=== PATIENT | male | born 1990 | race Caucasian/White ===

== ENCOUNTER 2018-07-05 13:39 | Inpatient (IN) | payer SELFPAY ==
[~2018-07-05] VITALS: Ht 175.3 cm; Wt 97.1 kg
[2018-07-05] MEDS ORDERED: MAGNESIUM HYDROXIDE 2,400 MG/30 ML ORAL.SUSP. PO PRN (15:15)
[2018-07-05] MEDS ORDERED: ONDANSETRON PF 4 MG/2 ML VIAL. IV PRN ×3 (15:15→21:30)
[2018-07-05] MEDS ORDERED: MORPHINE SULFATE 2 MG/ML VIAL. IV PRN ×3 (15:15→18:45)
[2018-07-05] MEDS ORDERED: oxyCODONE IR 5 MG TABLET PO PRN (15:15)
[2018-07-05] MEDS ORDERED: PROCHLORPERAZINE 25 MG SUPP.RECT. PR PRN (15:15)
[2018-07-05] MEDS ORDERED: CALCIUM CARBONATE 500 MG TAB.CHEW PO PRN (15:15)
[2018-07-05] MEDS ORDERED: MAG HYDROX/ALUMINUM HYD/SIMETH 30 ML ORAL.SUSP PO PRN (15:15)
[2018-07-05] MEDS ORDERED: PROCHLORPERAZINE 10 MG/2 ML VIAL. IV PRN ×2 (15:15→18:45)
[2018-07-05] MEDS ORDERED: ACETAMINOPHEN 325 MG TABLET. PO PRN (15:15)
[2018-07-05] MEDS ORDERED: BISACODYL 10 MG SUPP.RECT. PR PRN (15:15)
[2018-07-05] MEDS ORDERED: ZOLPIDEM 5 MG TABLET. PO PRN (15:15)
[2018-07-05] MEDS ORDERED: chlordiazePOXIDE HCL 25 MG CAPSULE PO PRN (15:45)
--- NOTE | 2018-07-05 15:48 | PDOC1 ---
History and Physical Date of Admission Date of Admission DATE: 07/05/18 TIME: 15:45 Identification/Chief Complaint Chief Complaint Right sided abd pain Source Source: Caregiver, Chart review, Patient History of Present Illness History of Present Illness 28-year-old obese male only takes inhalers when necessary, comes in because of acute onset right lower quadrant abdominal pain, some nausea and emesis and one episode diarrhea. No fevers at home. Went to [facility]. Imaging shows acute appendicitis hence transferred here. Surgery is aware, nothing by mouth. Has yet to see the patient NOn smoker but daily drinker, Admits he drinks more than what he is supposed to. No withdrawal signs yet Past Medical History Cardiovascular: No pertinent hx Pulmonary: Asthma, Bronchitis GI: No pertinent hx Heme/Onc: No pertinent hx Hepatobiliary: No pertinent hx Psych: No pertinent hx Rheumatologic: No pertinent hx Infectious disease: No pertinent hx ENT: No pertinent hx Endocrine: No pertinent hx Dermatology: No pertinent hx Past Surgical History Past Surgical History finger sx in high school-minor surgery Family History Family History: No Significant Social History Smoke: No ALCOHOL: heavy Drugs: None Current Medications Current Medications Current Medications Sodium Chloride 1,000 ml @ 100 mls/hr Q10H IV ; Start 07/05/18 at 15:10 Ondansetron HCl (Zofran) 4 mg PRN Q6HRS PRN IV NAUSEA/VOMITING; Start at 15:15 Prochlorperazine Edisylate (Compazine) 10 mg PRN Q6HRS PRN IV NAUSEA/VOMITING; Start 07/05/18 at 15:15 Prochlorperazine (Compazine) 25 mg PRN Q12HR PRN ID NAUSEA/VOMITING; Start at 15:15 Al Hydroxide/Mg Hydroxide (Mylanta Plus Xs) 30 ml PRN Q3HRS PRN PO HEARTBURN / GAS; Start 07/05/18 at 15:15 Calcium Carbonate/ Glycine (Tums) 500 mg PRN Q3HRS PRN PO UPSET STOMACH; Start 07/05/18 at 15:15 Zolpidem Tartrate (Ambien) 5 mg PRN QHS PRN PO INSOMNIA, MAY REPEAT IN 1HR; Start 07/05/18 at 15:15 Oxycodone HCl (Roxicodone) 5 mg PRN Q3HRS PRN PO BREAKTHROUGH PAIN; Start at 15:15 Morphine Sulfate (Morphine Sulfate) 2 mg PRN Q2HR PRN IV PAIN; Start 07/05/18 at 15:15 Acetaminophen (Tylenol) 650 mg PRN Q6HRS PRN PO Headaches, Temp > 101.5F; Start 07/05/18 at 15:15 Magnesium Hydroxide (Milk Of Magnesia) 2,400 mg PRN Q12HR PRN PO CONSTIPATION; Start 07/05/18 at 15:15 Bisacodyl (Dulcolax Supp) 10 mg PRN DAILY PRN ID CONSTIPATION; Start 07/05/18 at 15:15 Allergies Allergies: Coded Allergies: No Known Drug Allergies (Unverified , 07/05/18) ROS Review of System As per history of present illness, the rest of ROS 14 point negative Physical Exam General: Alert, Oriented X3, Cooperative, No acute distress HEENT: Atraumatic, PERRLA, EOMI Lungs: Clear to auscultation, Normal air movement Heart: S1S2, RRR, no thrills, no rubs, no gallops, no murmurs Cardiovascular: S1, S2 Breasts: Normal, Rt breast nml w/o mass, Lt breast nml w/o mass, Nipples normal Abdomen: Soft, Other (tenderness with voluntary guarding right lower quadrant area otherwise normoactive bowel sounds) Male Genitals Exam: normal genitalia, normal prostate Rectal Exam: not examined PELVIC: Nml ext genitalia Extremities: No clubbing, No cyanosis, No edema, Normal pulses, No tenderness/ swelling Skin: No rashes, No breakdown, No significant lesion Neuro: Normal gait, Normal speech, Strength at 5/5 X4 ext, Normal tone, Sensation intact, Cranial nerves 3-12 NL, Reflexes 2+ Psych/Mental Status: Mental status NL VTE Prophylaxis Ordered VTE Prophylaxis Devices: Yes VTE Pharmacological Prophylaxi: Yes Assessment/Plan Assessment/Plan Acute Appendicitis Obesity, Intermittent asthma-chronic stable Plan: Nothing by mouth, IV fluids, Zofran, surgery consult, discussed with family Agreeable to AMI Coe MD Jul 05, 2018 15:48
[2018-07-05] MEDS: IV 1/2 NORMAL SALINE 1,000 ML IV SCH (15:57)
[2018-07-05] MEDS: FOLIC ACID 1 MG TABLET. PO SCH (16:00)
[2018-07-05] MEDS: THIAMINE 100 MG TABLET. PO SCH (16:00)
[2018-07-05] MEDS: MULTIVITAMIN with MINERAL TABLET. PO SCH (16:00)
[2018-07-05] MEDS ORDERED: ZOLP10TA PO (16:08)
[2018-07-05] MEDS ORDERED: CETI10TA22 PO (16:08)
[2018-07-05] MEDS ORDERED: IBUP-1027 PO (16:08)
[2018-07-05] MEDS ORDERED: ALBU2.5V5 NEB (16:08)
[2018-07-05] MEDS ORDERED: FLUT1DIS5 IH (16:08)
[2018-07-05] MEDS ORDERED: ALBUTEROL SULFATE 2.5 MG/3 ML NEBU. NEB PRN ×2 (16:15→22:30)
[2018-07-05] MEDS: CETIRIZINE HCL 10 MG TABLET. PO SCH (16:30)
[2018-07-05] MEDS ORDERED: BUPIVAC MPF-EPI 0.5%-1:200000 30 ML VIAL. ONE (17:21)
[2018-07-05] MEDS ORDERED: fentaNYL PF VIAL 250 MCG/5 ML VIAL ONE (18:28)
[2018-07-05] MEDS ORDERED: LIDOCAINE 2% PF Vial for OR 5 ML VIAL. ONE (18:29)
[2018-07-05] MEDS ORDERED: ROCURONIUM 50 MG/5 ML VIAL. ONE (18:29)
[2018-07-05] MEDS ORDERED: PROPOFOL 20 ML IV ONE (18:29)
[2018-07-05] MEDS ORDERED: SUCCINYLCHOLINE 200 MG/10 ML VIAL. ONE (18:29)
[2018-07-05] MEDS ORDERED: ONDANSETRON PF 4 MG/2 ML VIAL. ONE (18:29)
[2018-07-05] MEDS ORDERED: DEXAMETHASONE SOD PHOS 20 MG/5 ML VIAL. ONE (18:29)
[2018-07-05] MEDS ORDERED: IV RINGERS,LACTATED 1000ML 1,000 ML IV SCH (18:33)
[2018-07-05] MEDS ORDERED: LIDOCAINE 1% PF 2 ML VIAL. ID PRN (18:45)
[2018-07-05] MEDS ORDERED: cefOXitin SODIUM 2 GM in IV DEXTROSE 5% 100ML 100 ML IV ONE (18:45)
[2018-07-05] MEDS ORDERED: fentaNYL PF VIAL 100 MCG/2 ML VIAL IV PRN (18:45)
[2018-07-05] MEDS ORDERED: HYDROmorphone 2 MG/ML VIAL IV PRN (18:45)
--- NOTE | 2018-07-05 19:02 | PDOC2 ---
CONSULT Date of Consult Date of Consult DATE: 07/05/18 TIME: 18:57 Reason for Consult Reason for Consult: Appendicitis Referring Physician Referring Physician: Samantha Identification/Chief Complaint Chief Complaint RLQ abd pain Source Source: Chart review, Patient History of Present Illness Reason for Visit: 28 yo M with 2 day history of abd pain. Began on left side and was seen in ER yesterday, without obvious findings. N/V, diarrhea. Pain moved to RLQ and repeat imaging at [facility] c/w appendicitis. Pt notes pain with movement and sharp movements. Past Medical History Cardiovascular: No pertinent hx Pulmonary: Asthma, Bronchitis, Pneumonia, Other (hx of pneumonia recurrent with associated sepsis) GI: No pertinent hx Heme/Onc: No pertinent hx Hepatobiliary: No pertinent hx Psych: No pertinent hx Rheumatologic: No pertinent hx Infectious disease: No pertinent hx ENT: No pertinent hx Endocrine: No pertinent hx Dermatology: No pertinent hx Past Surgical History Past Surgical History: Other (finger fracture repair) Family History Family History: No Significant Social History No ALCOHOL: heavy Drugs: None Current Medications Current Medications Current Medications Sodium Chloride 1,000 ml @ 100 mls/hr Q10H IV Last administered on 07/05/18at 15:57; Start 07/05/18 at 15:10 Ondansetron HCl (Zofran) 4 mg PRN Q6HRS PRN IV NAUSEA/VOMITING Last administered on 07/05/18at 15:48; Start 07/05/18 at 15:15 Prochlorperazine Edisylate (Compazine) 10 mg PRN Q6HRS PRN IV NAUSEA/VOMITING; Start 07/05/18 at 15:15 Prochlorperazine (Compazine) 25 mg PRN Q12HR PRN [place] NAUSEA/VOMITING; Start at 15:15 Al Hydroxide/Mg Hydroxide (Mylanta Plus Xs) 30 ml PRN Q3HRS PRN PO HEARTBURN / GAS; Start 07/05/18 at 15:15 Calcium Carbonate/ Glycine (Tums) 500 mg PRN Q3HRS PRN PO UPSET STOMACH; Start 07/05/18 at 15:15 Zolpidem Tartrate (Ambien) 5 mg PRN QHS PRN PO INSOMNIA, MAY REPEAT IN 1HR; Start 07/05/18 at 15:15 Oxycodone HCl (Roxicodone) 5 mg PRN Q3HRS PRN PO BREAKTHROUGH PAIN; Start at 15:15 Morphine Sulfate (Morphine Sulfate) 2 mg PRN Q2HR PRN IV PAIN Last administered on 07/05/18at 15:48; Start 07/05/18 at 15:15; Stop 07/05/18 at 17 :28; Status DC Acetaminophen (Tylenol) 650 mg PRN Q6HRS PRN PO Headaches, Temp > 101.5F; Start 07/05/18 at 15:15 Magnesium Hydroxide (Milk Of Magnesia) 2,400 mg PRN Q12HR PRN PO CONSTIPATION; Start 07/05/18 at 15:15 Bisacodyl (Dulcolax Supp) 10 mg PRN DAILY PRN [place] CONSTIPATION; Start 07/05/18 at 15:15 Chlordiazepoxide (Librium) 25 mg PRN Q6HRS PRN PO ANXIETY / AGITATION; Start 07/05/18 at 15:45 Lorazepam (Ativan) 1 mg PRN Q4HRS PRN IV ANXIETY / AGITATION; Start 07/05/18 at 15:45 Multivitamins (Thera M Plus) 1 tab DAILY PO ; Start 07/05/18 at 16:00 Thiamine Mononitrate (Vitamin B-1) 100 mg DAILY PO ; Start 07/05/18 at 16:00 Folic Acid (Folic Acid) 1 mg DAILY PO ; Start 07/05/18 at 16:00 Albuterol Sulfate (Ventolin Neb Soln) 2.5 mg PRN QID PRN NEB Asthma; Start at 16:15 Cetirizine HCl (ZyrTEC) 10 mg DAILY PO ; Start 07/05/18 at 16:30 Budesonide (Pulmicort) 0.5 mg RTBID NEB ; Start 07/05/18 at 20:00 Zolpidem Tartrate (Ambien) 5 mg QHS PO ; Start 07/05/18 at 21:00 Albuterol Sulfate (Ventolin Neb Soln) 2.5 mg RTQID NEB ; Start 07/05/18 at 20: 00 Influenza Virus Vaccine (Afluria Trivalent 2258-2294 Syringe) 0.5 ml ONCE ONCE VAX IM ; Start 07/05/18 at 17:30; Stop 07/05/18 at 17:31; Status DC Morphine Sulfate (Morphine Sulfate) 4 mg PRN Q2HR PRN IV PAIN Last administered on 07/05/18at 18:19; Start 07/05/18 at 17:30 Bupivacaine HCl/ Epinephrine Bitart (Sensorcain-Mpf Epi 0.5%-1:966302) 30 ml STK -MED ONCE .ROUTE ; Start 07/05/18 at 17:21; Stop 07/05/18 at 18:21; Status DC Fentanyl Citrate (Fentanyl 5ml Vial) 250 mcg STK-MED ONCE .ROUTE ; Start at 18:28; Stop 07/05/18 at 18:29; Status DC Succinylcholine Chloride (Anectine) 200 mg STK-MED ONCE .ROUTE ; Start at 18:29; Stop 07/05/18 at 18:30; Status DC Cefoxitin Sodium 2 gm/Dextrose 100 ml @ 200 mls/hr 1X PERIOP ONCE IV ; Start 07/05/18 at 18:45; Stop 07/05/18 at 19:14 Ondansetron HCl (Zofran) 4 mg STK-MED ONCE .ROUTE ; Start 07/05/18 at 18:29; Stop 07/05/18 at 18:30; Status DC Propofol 20 ml @ As Directed STK-MED ONCE IV ; Start 07/05/18 at 18:29; Stop 07/05/18 at 18:30; Status DC Lidocaine HCl (Lidocaine Pf 2% Vial) 5 ml STK-MED ONCE .ROUTE ; Start 07/05/18 at 18:29; Stop 07/05/18 at 18:30; Status DC Dexamethasone Sodium Phosphate (Decadron) 20 mg STK-MED ONCE .ROUTE ; Start at 18:29; Stop 07/05/18 at 18:30; Status DC Rocuronium [place] (Zemuron) 50 mg STK-MED ONCE .ROUTE ; Start 07/05/18 at 18: 29; Stop 07/05/18 at 18:30; Status DC Ondansetron HCl (Zofran) 4 mg PRN Q6HRS PRN IV NAUSEA/VOMITING; Start at 18:45; Stop 07/06/18 at 18:44 Fentanyl Citrate (Fentanyl 2ml Vial) 25 mcg PRN Q5MIN PRN IV MILD PAIN; Start 07/05/18 at 18:45; Stop 07/06/18 at 18:44 Fentanyl Citrate (Fentanyl 2ml Vial) 50 mcg PRN Q5MIN PRN IV MODERATE TO SEVERE PAIN; Start 07/05/18 at 18:45; Stop 07/06/18 at 18:44 Morphine Sulfate (Morphine Sulfate) 1 mg PRN Q10MIN PRN IV SEVERE PAIN; Start 07/05/18 at 18:45; Stop 07/06/18 at 18:44 Ringer's Solution 1,000 ml @ 30 mls/hr Q24H IV ; Start 07/05/18 at 18:33; Stop 07/06/18 at 06:32 Lidocaine HCl (Xylocaine-Mpf 1% 2ml Vial) 2 ml PRN 1X PRN ID PRIOR TO IV START ; Start 07/05/18 at 18:45; Stop 07/06/18 at 18:44 Hydromorphone HCl (Dilaudid) 0.5 mg PRN Q10MIN PRN IV SEV PAIN, Second choice; Start 07/05/18 at 18:45; Stop 07/06/18 at 18:44 Prochlorperazine Edisylate (Compazine) 5 mg PACU PRN PRN IV NAUSEA, MRX1; Start 07/05/18 at 18:45; Stop 07/06/18 at 18:44 Cefoxitin Sodium 100 ml @ As Directed STK-MED ONCE IV ; Start 07/05/18 at 18: 56; Stop 07/05/18 at 18:57; Status DC Active Scripts Active Reported Ambien (Zolpidem Tartrate) 10 Mg Tablet 1 Tab PO QHS Ibuprofen 400 Mg Tablet 200 Mg PO PRN Q6HRS PRN Zyrtec (Cetirizine Hcl) 10 Mg Tablet 1 Tab PO DAILY Albuterol Sulfate Neb Soln (Albuterol Sulfate) 2.5 Mg/3 Ml Vial.neb 2.5 Mg NEB PRN QID PRN Advair 500-50 Diskus (Fluticasone/Salmeterol) 1 Each Disk.w.dev 1 Puff IH BID Allergies Allergies: Coded Allergies: No Known Drug Allergies (Unverified , 07/05/18) ROS Gastrointestinal: Yes Nausea, Yes Vomiting, Yes Abdominal Pain, Yes Diarrhea Physical Exam General: Alert, Oriented X3, Cooperative, mild distress HEENT: Atraumatic Lungs: Normal air movement Abdomen: Soft, Other (TTP RLQ) Extremities: No clubbing, No cyanosis Skin: No rashes, No breakdown Neuro: Normal speech, Sensation intact Psych/Mental Status: Mental status NL, Mood NL Vitals VITALS Vital Signs Date Time Temp Pulse Resp B/P (MAP) Pulse Ox O2 Delivery O2 Flow Rate FiO2 07/05/18 18:19 Room Air Labs Labs labs at [facility] reviewed Images Images Repeat CT at [facility] c/w appendicitis Assessment/Plan Assessment/Plan Appendicitis IV abx and IVF started TO OR for laparoscopic versus open appendectomy R/r/B/A d/w pt. Risks, including, but not limited to: bleeding, infection, damage to surrounding structures, risk of anesthesia, risk of open. He appears to understand, his questions are answered and he elects to proceed. Thanks for consult! RAULITO VEGA MD Jul 05, 2018 19:02
[2018-07-05] MEDS ORDERED: GLYCOPYRROLATE 1 MG/5 ML VIAL. ONE (19:59)
[2018-07-05] MEDS ORDERED: NEOSTIGMINE METHYLSULFATE 5 MG/5 ML SYRINGE. ONE (19:59)
[2018-07-05] MEDS ORDERED: SEVOFLURANE 31 TO 60 MINUTES. IH ONE (20:17)
[2018-07-05] MEDS ORDERED: SEVOFLURANE 61 TO 120 MINUTES. IH ONE (20:17)
[2018-07-05] MEDS ORDERED: KETOROLAC 30 MG/ML VIAL. ONE (20:31)
[2018-07-05] MEDS: KETOROLAC 30 MG/ML VIAL. IV PRN (20:34)
[2018-07-05] MEDS: ALBUTEROL SULFATE 2.5 MG/3 ML NEBU. NEB SCH (20:50)
[2018-07-05] MEDS: BUDESONIDE 0.5 MG/2 ML NEBU. NEB SCH (20:50)
[2018-07-05] MEDS ORDERED: ZOLPIDEM 5 MG TABLET. PO SCH (21:00)
[2018-07-05] MEDS: fentaNYL PF VIAL 100 MCG/2 ML VIAL IV PRN ×2 (21:05→21:25)
--- NOTE | 2018-07-05 21:06 | PDOC ---
Date and Time After uneventful general anesthesia for lap appendectomy patient continued to have SpO2 88 to 92% with supplemental oxygen. Hx asthma (hasn't taken Advair for 2 months because he cannot afford it) He has had pneumonia the past two . Also a h/o Sleep apnea Preop RA SpO2 was 92% He is fully awake with clear airway. Lungs are clear bilat, no wheezing, rales or ronchi Some splinting, given ketorolac (he has not had resp issues with NSAIDs in the past), incentive spirometry with SpO2 improving to 97% but a few minutes after he is back to 89%. Given Albuterol, SpO2 up to 95%. Still some pain with inspiration. Needs to remain on oxygen and continuous pulse oximetry. I would recommend IS q2hrs. Nurses will call hospitalist for further orders. Current Medications Current Medications Sodium Chloride 1,000 ml @ 100 mls/hr Q10H IV Last administered on 07/05/18at 15:57; Start 07/05/18 at 15:10 Ondansetron HCl (Zofran) 4 mg PRN Q6HRS PRN IV NAUSEA/VOMITING Last administered on 07/05/18at 15:48; Start 07/05/18 at 15:15 Prochlorperazine Edisylate (Compazine) 10 mg PRN Q6HRS PRN IV NAUSEA/VOMITING; Start 07/05/18 at 15:15 Prochlorperazine (Compazine) 25 mg PRN Q12HR PRN [place] NAUSEA/VOMITING; Start at 15:15 Al Hydroxide/Mg Hydroxide (Mylanta Plus Xs) 30 ml PRN Q3HRS PRN PO HEARTBURN / GAS; Start 07/05/18 at 15:15 Calcium Carbonate/ Glycine (Tums) 500 mg PRN Q3HRS PRN PO UPSET STOMACH; Start 07/05/18 at 15:15 Zolpidem Tartrate (Ambien) 5 mg PRN QHS PRN PO INSOMNIA, MAY REPEAT IN 1HR; Start 07/05/18 at 15:15 Oxycodone HCl (Roxicodone) 5 mg PRN Q3HRS PRN PO BREAKTHROUGH PAIN; Start at 15:15 Morphine Sulfate (Morphine Sulfate) 2 mg PRN Q2HR PRN IV PAIN Last administered on 07/05/18at 15:48; Start 07/05/18 at 15:15; Stop 07/05/18 at 17 :28; Status DC Acetaminophen (Tylenol) 650 mg PRN Q6HRS PRN PO Headaches, Temp > 101.5F; Start 07/05/18 at 15:15 Magnesium Hydroxide (Milk Of Magnesia) 2,400 mg PRN Q12HR PRN PO CONSTIPATION; Start 07/05/18 at 15:15 Bisacodyl (Dulcolax Supp) 10 mg PRN DAILY PRN [place] CONSTIPATION; Start 07/05/18 at 15:15 Chlordiazepoxide (Librium) 25 mg PRN Q6HRS PRN PO ANXIETY / AGITATION; Start 07/05/18 at 15:45 Lorazepam (Ativan) 1 mg PRN Q4HRS PRN IV ANXIETY / AGITATION; Start 07/05/18 at 15:45 Multivitamins (Thera M Plus) 1 tab DAILY PO ; Start 07/05/18 at 16:00 Thiamine Mononitrate (Vitamin B-1) 100 mg DAILY PO ; Start 07/05/18 at 16:00 Folic Acid (Folic Acid) 1 mg DAILY PO ; Start 07/05/18 at 16:00 Albuterol Sulfate (Ventolin Neb Soln) 2.5 mg PRN QID PRN NEB Asthma; Start at 16:15 Cetirizine HCl (ZyrTEC) 10 mg DAILY PO ; Start 07/05/18 at 16:30 Budesonide (Pulmicort) 0.5 mg RTBID NEB ; Start 07/05/18 at 20:00 Zolpidem Tartrate (Ambien) 5 mg QHS PO ; Start 07/05/18 at 21:00 Albuterol Sulfate (Ventolin Neb Soln) 2.5 mg RTQID NEB ; Start 07/05/18 at 20: 00 Influenza Virus Vaccine (Afluria Trivalent [id number] Syringe) 0.5 ml ONCE ONCE VAX IM ; Start 07/05/18 at 17:30; Stop 07/05/18 at 17:31; Status DC Morphine Sulfate (Morphine Sulfate) 4 mg PRN Q2HR PRN IV PAIN Last administered on 07/05/18at 18:19; Start 07/05/18 at 17:30 Bupivacaine HCl/ Epinephrine Bitart (Sensorcain-Mpf Epi 0.5%-1:256711) 30 ml STK -MED ONCE .ROUTE Last administered on 07/05/18at 19:30; Start 07/05/18 at 17: 21; Stop 07/05/18 at 18:21; Status DC Fentanyl Citrate (Fentanyl 5ml Vial) 250 mcg STK-MED ONCE .ROUTE ; Start at 18:28; Stop 07/05/18 at 18:29; Status DC Succinylcholine Chloride (Anectine) 200 mg STK-MED ONCE .ROUTE ; Start at 18:29; Stop 07/05/18 at 18:30; Status DC Cefoxitin Sodium 2 gm/Dextrose 100 ml @ 200 mls/hr 1X PERIOP ONCE IV Last administered on 07/05/18at 19:03; Start 07/05/18 at 18:45; Stop 07/05/18 at 19 :14; Status DC Ondansetron HCl (Zofran) 4 mg STK-MED ONCE .ROUTE ; Start 07/05/18 at 18:29; Stop 07/05/18 at 18:30; Status DC Propofol 20 ml @ As Directed STK-MED ONCE IV ; Start 07/05/18 at 18:29; Stop 07/05/18 at 18:30; Status DC Lidocaine HCl (Lidocaine Pf 2% Vial) 5 ml STK-MED ONCE .ROUTE ; Start 07/05/18 at 18:29; Stop 07/05/18 at 18:30; Status DC Dexamethasone Sodium Phosphate (Decadron) 20 mg STK-MED ONCE .ROUTE ; Start at 18:29; Stop 07/05/18 at 18:30; Status DC Rocuronium [place] (Zemuron) 50 mg STK-MED ONCE .ROUTE ; Start 07/05/18 at 18: 29; Stop 07/05/18 at 18:30; Status DC Ondansetron HCl (Zofran) 4 mg PRN Q6HRS PRN IV NAUSEA/VOMITING; Start at 18:45; Stop 07/06/18 at 18:44 Fentanyl Citrate (Fentanyl 2ml Vial) 25 mcg PRN Q5MIN PRN IV MILD PAIN; Start 07/05/18 at 18:45; Stop 07/06/18 at 18:44 Fentanyl Citrate (Fentanyl 2ml Vial) 50 mcg PRN Q5MIN PRN IV MODERATE TO SEVERE PAIN Last administered on 07/05/18at 20:26; Start 07/05/18 at 18:45; Stop 07/06/18 at 18:44 Morphine Sulfate (Morphine Sulfate) 1 mg PRN Q10MIN PRN IV SEVERE PAIN; Start 07/05/18 at 18:45; Stop 07/06/18 at 18:44 Ringer's Solution 1,000 ml @ 30 mls/hr Q24H IV Last administered on at 20:27; Start 07/05/18 at 18:33; Stop 07/06/18 at 06:32 Lidocaine HCl (Xylocaine-Mpf 1% 2ml Vial) 2 ml PRN 1X PRN ID PRIOR TO IV START ; Start 07/05/18 at 18:45; Stop 07/06/18 at 18:44 Hydromorphone HCl (Dilaudid) 0.5 mg PRN Q10MIN PRN IV SEV PAIN, Second choice; Start 07/05/18 at 18:45; Stop 07/06/18 at 18:44 Prochlorperazine Edisylate (Compazine) 5 mg PACU PRN PRN IV NAUSEA, MRX1; Start 07/05/18 at 18:45; Stop 07/06/18 at 18:44 Cefoxitin Sodium 100 ml @ As Directed STK-MED ONCE IV ; Start 07/05/18 at 18: 56; Stop 07/05/18 at 18:57; Status DC Glycopyrrolate (Robinul) 1 mg STK-MED ONCE .ROUTE ; Start 07/05/18 at 19:59; Stop 07/05/18 at 20:00; Status DC Neostigmine Methylsulfate (Neostigmine Methylsulfate) 5 mg STK-MED ONCE .ROUTE ; Start 07/05/18 at 19:59; Stop 07/05/18 at 20:00; Status DC Sevoflurane (Ultane) 30 ml STK-MED ONCE IH ; Start 07/05/18 at 20:17; Stop at 20:18; Status DC Sevoflurane (Ultane) 60 ml STK-MED ONCE IH ; Start 07/05/18 at 20:17; Stop at 20:18; Status DC Ketorolac Tromethamine (Toradol 30mg Vial) 30 mg STK-MED ONCE .ROUTE ; Start at 20:31; Stop 07/05/18 at 20:32; Status DC Ketorolac Tromethamine (Toradol 30mg Vial) 30 mg PRN Q6HRS PRN IV PAIN Last administered on 07/05/18at 20:34; Start 07/05/18 at 20:45; Stop 07/10/18 at 20 :44 Albuterol Sulfate (Ventolin Neb Soln) 2.5 mg 1X ONCE NEB ; Start 07/05/18 at 21:15; Stop 07/05/18 at 21:16 Active Scripts Active Reported Ambien (Zolpidem Tartrate) 10 Mg Tablet 1 Tab PO QHS Ibuprofen 400 Mg Tablet 200 Mg PO PRN Q6HRS PRN Zyrtec (Cetirizine Hcl) 10 Mg Tablet 1 Tab PO DAILY Albuterol Sulfate Neb Soln (Albuterol Sulfate) 2.5 Mg/3 Ml Vial.neb 2.5 Mg NEB PRN QID PRN Advair 500-50 Diskus (Fluticasone/Salmeterol) 1 Each Disk.w.dev 1 Puff IH BID LAST VITALS Vital Signs Date Time Temp Pulse Resp B/P (MAP) Pulse Ox O2 Delivery O2 Flow Rate FiO2 07/05/18 20:41 64 16 133/75 97 Nasal Cannula 2 07/05/18 20:11 98.4 98.4 MARIANNE CAMPA MD Jul 05, 2018 21:06
[2018-07-05] MEDS ORDERED: ALBUTEROL SULFATE 2.5 MG/3 ML NEBU. NEB ONE (21:15)
[2018-07-05] MEDS: IV RINGERS,LACTATED 1000ML 1,000 ML IV SCH (21:21)
[2018-07-05 21:30] VITALS: BP 129/75
[2018-07-05] MEDS ORDERED: 0.9 % SODIUM CHLORIDE 10 ML DISP.SYRIN. IV PRN (21:30)
[2018-07-05] MEDS ORDERED: KETOROLAC 15 MG/ML VIAL. IV PRN (21:30)
--- NOTE | 2018-07-05 21:36 | PDOC4 ---
OPERATIVE NOTE Date: Date: Jul 05, 2018 Pre-Op Diagnosis: Appendicitis Post-Op Diagnosis: same, non perforated Procedure Performed: laparoscopic appendectomy Surgeon: James Vega Anesthesia Type: GETA plus local Blood Loss: 10 Specimans Obtained: appendix Findings: no other pathology noted, indurated appendix, but no perforation Complications: none Operative Note: After obtaining informed consent, patient was taken to OR, induced under GETA and prepped in the usual fashion. 5 mm port placed LLQ and suprapubic, 12 port placed supraumbilical, all under laparoscopic guidance. Patient is obese, making procedure difficult. Liver and gallbladder normal in appearance. No obvious diverticulitis. Appendix noted to be indurated, but no perforation. Amputated at level of cecum with general SHAI, mesoappendix taken with vascular load. Additional hemostasis obtained with clips. Appendix placed in bag, delivered, and sent to pathology for evaluation. Copious irrigation. No evidence of bleeding or other pathology. Ports removed without bleeding. Fascia repaired with 0 vicryl. Skin repaired with 4 0 monocryl. Dressing applied. Patient tolerated procedure well and sent to PACU in stable condition. All counts correct. Wound class 3. RAULITO VEGA MD Jul 05, 2018 21:36
[2018-07-05] MEDS ORDERED: FUROSEMIDE 20 MG/2 ML VIAL. IVP ONE (22:00)
[2018-07-05 22:30] VITALS: BP 136/81
[2018-07-05 23:00] VITALS: BP 124/79
[2018-07-05] MEDS: HYDROcodone/APAP 5/325MG 1 TAB TABLET PO PRN (23:26)
[2018-07-05 23:33] VITALS: BP 139/82
[2018-07-06] VITALS (7 sets, daily range): BP systolic 105–136; BP diastolic 52–83
[2018-07-06] MEDS: IV 1/2 NORMAL SALINE 1,000 ML IV SCH (01:10)
[2018-07-06] MEDS: KETOROLAC 30 MG/ML VIAL. IV PRN (02:48)
[2018-07-06] MEDS: HYDROcodone/APAP 5/325MG 1 TAB TABLET PO PRN ×2 (04:43→08:45)
[2018-07-06 05:05] LABS: BASO % 0 % (0-3); EOS % 0 % (0-3); HEMATOCRIT 47.1 % (39.0-53.0); HEMOGLOBIN 16.1 g/dL (13.0-17.5); LYMPH # 0.6 x10^3/uL (1.0-4.8); LYMPH % 10 % (24-48); MEAN CORPUSCULAR HEMOGLOBIN 31 pg (25-35); MEAN CORPUSCULAR HGB CONC 34 g/dL (31-37); MEAN CORPUSCULAR VOLUME 92 fL (79-100); MONO # 0.1 x10^3/uL (0.0-1.1); MONO % 2 % (0-9); NEUT # 5.5 x10^3uL (1.8-7.7); NEUT % 87 % (31-73); PLATELET COUNT 200 x10^3/uL (140-400); RED BLOOD COUNT 5.15 x10^6/uL (4.30-5.70); RED CELL DISTRIBUTION WIDTH 13.6 % (11.5-14.5); WHITE BLOOD COUNT 6.3 x10^3/uL (4.0-11.0)
[2018-07-06 05:15] LABS: CALCIUM 9.1 mg/dL (8.5-10.1); CREATININE 0.9 mg/dL (0.7-1.3); GFR 99.8; POTASSIUM 4.4 mmol/L (3.5-5.1)
[2018-07-06 06:26] LABS: % ATYL 1 % (0-0); % BANDS 10 % (0-9); % LYMPHS 9 % (24-48); % MONOS 2 % (0-10); % SEGS 78 % (35-66); PLT ESTIMATE ADEQUATE (ADEQUATE)
[2018-07-06] MEDS: IV RINGERS,LACTATED 1000ML 1,000 ML IV SCH (07:21)
[2018-07-06] MEDS: CETIRIZINE HCL 10 MG TABLET. PO SCH (08:44)
[2018-07-06] MEDS: THIAMINE 100 MG TABLET. PO SCH (08:44)
[2018-07-06] MEDS: FOLIC ACID 1 MG TABLET. PO SCH (08:45)
[2018-07-06] MEDS: MULTIVITAMIN with MINERAL TABLET. PO SCH (08:46)
[2018-07-06] MEDS ORDERED: DOCUSATE SODIUM 100 MG CAPSULE. PO SCH (09:00)
[2018-07-06] MEDS ORDERED: DOCU-109 PO (09:45)
[2018-07-06] MEDS ORDERED: HYDR-2758 PO (09:45)
--- NOTE | 2018-07-06 09:47 | PDOC ---
SURGICAL PROGRESS NOTE Subjective tolerating diet pain managed gas pains Vital Signs Vital Signs Date Time Temp Pulse Resp B/P (MAP) Pulse Ox O2 Delivery O2 Flow Rate FiO2 07/06/18 08:46 20 Room Air 07/06/18 07:00 98.1 70 122/70 (87) 94 98.1 07/06/18 06:00 1.0 I&O Intake and Output 07/06/18 07:00 Intake Total 4500 ml Output Total 710 ml Balance 3790 ml Intake Oral 1420 ml IV Total 1540 ml Other 1540 ml Output Urine Total 700 ml Estimated Blood Loss 10 ml # Voids 2 General: Alert, Oriented X3, Cooperative, No acute distress Abdomen: Soft, Other (lap dressings dry ) Labs Laboratory Tests Test 07/06/18 04:15 White Blood Count 6.3 x10^3/uL (4.0-11.0) Red Blood Count 5.15 x10^6/uL (4.30-5.70) Hemoglobin 16.1 g/dL (13.0-17.5) Hematocrit 47.1 % (39.0-53.0) Mean Corpuscular Volume 92 fL (79-100) Mean Corpuscular Hemoglobin 31 pg (25-35) Mean Corpuscular Hemoglobin Concent 34 g/dL (31-37) Red Cell Distribution Width 13.6 % (11.5-14.5) Platelet Count 200 x10^3/uL (140-400) Neutrophils (%) (Auto) 87 % (31-73) Lymphocytes (%) (Auto) 10 % (24-48) Monocytes (%) (Auto) 2 % (0-9) Eosinophils (%) (Auto) 0 % (0-3) Basophils (%) (Auto) 0 % (0-3) Neutrophils # (Auto) 5.5 x10^3uL (1.8-7.7) Lymphocytes # (Auto) 0.6 x10^3/uL (1.0-4.8) Monocytes # (Auto) 0.1 x10^3/uL (0.0-1.1) Eosinophils # (Auto) 0.0 x10^3/uL (0.0-0.7) Basophils # (Auto) 0.0 x10^3/uL (0.0-0.2) Segmented Neutrophils % 78 % (35-66) Band Neutrophils % 10 % (0-9) Lymphocytes % 9 % (24-48) Atypical Lymphocytes % (Manual) 1 % (0-0) Monocytes % 2 % (0-10) Platelet Estimate Adequate (ADEQUATE) Sodium Level 141 mmol/L (136-145) Potassium Level 4.4 mmol/L (3.5-5.1) Chloride Level 106 mmol/L (98-107) Carbon Dioxide Level 25 mmol/L (21-32) Anion Gap 10 (6-14) Blood Urea Nitrogen 5 mg/dL (8-26) Creatinine 0.9 mg/dL (0.7-1.3) Estimated GFR (Cockcroft-Gault) 99.8 Glucose Level 132 mg/dL (70-99) Calcium Level 9.1 mg/dL (8.5-10.1) Laboratory Tests Test 07/06/18 04:15 White Blood Count 6.3 x10^3/uL (4.0-11.0) Red Blood Count 5.15 x10^6/uL (4.30-5.70) Hemoglobin 16.1 g/dL (13.0-17.5) Hematocrit 47.1 % (39.0-53.0) Mean Corpuscular Volume 92 fL (79-100) Mean Corpuscular Hemoglobin 31 pg (25-35) Mean Corpuscular Hemoglobin Concent 34 g/dL (31-37) Red Cell Distribution Width 13.6 % (11.5-14.5) Platelet Count 200 x10^3/uL (140-400) Neutrophils (%) (Auto) 87 % (31-73) Lymphocytes (%) (Auto) 10 % (24-48) Monocytes (%) (Auto) 2 % (0-9) Eosinophils (%) (Auto) 0 % (0-3) Basophils (%) (Auto) 0 % (0-3) Neutrophils # (Auto) 5.5 x10^3uL (1.8-7.7) Lymphocytes # (Auto) 0.6 x10^3/uL (1.0-4.8) Monocytes # (Auto) 0.1 x10^3/uL (0.0-1.1) Eosinophils # (Auto) 0.0 x10^3/uL (0.0-0.7) Basophils # (Auto) 0.0 x10^3/uL (0.0-0.2) Segmented Neutrophils % 78 % (35-66) Band Neutrophils % 10 % (0-9) Lymphocytes % 9 % (24-48) Atypical Lymphocytes % (Manual) 1 % (0-0) Monocytes % 2 % (0-10) Platelet Estimate Adequate (ADEQUATE) Sodium Level 141 mmol/L (136-145) Potassium Level 4.4 mmol/L (3.5-5.1) Chloride Level 106 mmol/L (98-107) Carbon Dioxide Level 25 mmol/L (21-32) Anion Gap 10 (6-14) Blood Urea Nitrogen 5 mg/dL (8-26) Creatinine 0.9 mg/dL (0.7-1.3) Estimated GFR (Cockcroft-Gault) 99.8 Glucose Level 132 mg/dL (70-99) Calcium Level 9.1 mg/dL (8.5-10.1) Assessment/Plan s/p appy ok to ca CESAR Gonzalez APRN Jul 06, 2018 09:47
[2018-07-06] MEDS: ALBUTEROL SULFATE 2.5 MG/3 ML NEBU. NEB SCH (10:12)
[2018-07-06] MEDS: BUDESONIDE 0.5 MG/2 ML NEBU. NEB SCH (10:12)
--- NOTE | 2018-07-06 13:21 | PDOC ---
PROGRESS NOTES Chief Complaint Chief Complaint Right sided abd pain N/V/D Acute appendicitis H/o asthma History of Present Illness History of Present Illness Pt seen and examined while sitting upright in bed Pt stated he was feeling well and ready to go home Discussed w/RN Vitals Vitals Vital Signs Date Time Temp Pulse Resp B/P (MAP) Pulse Ox O2 Delivery O2 Flow Rate FiO2 07/06/18 11:00 98.0 104 16 136/83 (100) 94 Room Air 98.0 07/06/18 06:00 1.0 Physical Exam Physical Exam Neck: Supple, no JVD General: Alert, Oriented X3, Cooperative, No acute distress Heart: Regular rate, No murmurs Lungs: Clear Abdomen: Normal bowel sounds, Soft, Other (lap dressings dry, clean and intact) Extremities: No clubbing, No cyanosis Skin: No rashes, No breakdown Labs LABS Laboratory Tests Test 07/06/18 04:15 White Blood Count 6.3 x10^3/uL (4.0-11.0) Red Blood Count 5.15 x10^6/uL (4.30-5.70) Hemoglobin 16.1 g/dL (13.0-17.5) Hematocrit 47.1 % (39.0-53.0) Mean Corpuscular Volume 92 fL (79-100) Mean Corpuscular Hemoglobin 31 pg (25-35) Mean Corpuscular Hemoglobin Concent 34 g/dL (31-37) Red Cell Distribution Width 13.6 % (11.5-14.5) Platelet Count 200 x10^3/uL (140-400) Neutrophils (%) (Auto) 87 % (31-73) Lymphocytes (%) (Auto) 10 % (24-48) Monocytes (%) (Auto) 2 % (0-9) Eosinophils (%) (Auto) 0 % (0-3) Basophils (%) (Auto) 0 % (0-3) Neutrophils # (Auto) 5.5 x10^3uL (1.8-7.7) Lymphocytes # (Auto) 0.6 x10^3/uL (1.0-4.8) Monocytes # (Auto) 0.1 x10^3/uL (0.0-1.1) Eosinophils # (Auto) 0.0 x10^3/uL (0.0-0.7) Basophils # (Auto) 0.0 x10^3/uL (0.0-0.2) Segmented Neutrophils % 78 % (35-66) Band Neutrophils % 10 % (0-9) Lymphocytes % 9 % (24-48) Atypical Lymphocytes % (Manual) 1 % (0-0) Monocytes % 2 % (0-10) Platelet Estimate Adequate (ADEQUATE) Sodium Level 141 mmol/L (136-145) Potassium Level 4.4 mmol/L (3.5-5.1) Chloride Level 106 mmol/L (98-107) Carbon Dioxide Level 25 mmol/L (21-32) Anion Gap 10 (6-14) Blood Urea Nitrogen 5 mg/dL (8-26) Creatinine 0.9 mg/dL (0.7-1.3) Estimated GFR (Cockcroft-Gault) 99.8 Glucose Level 132 mg/dL (70-99) Calcium Level 9.1 mg/dL (8.5-10.1) Review of Systems Review of Systems C/o mild incisional pain and hunger Pt stated he was feeling good and ready to go home Assessment and Plan Assessmemt and Plan Assessment: Post-op day #2 Right sided abd pain N/V/D Acute appendicitis H/o asthma Plan: Ready for d/c today F/u w/PCP as outpatient Comment Review of Relevant I have reviewed the following items lonny (where applicable) has been applied. Labs Laboratory Tests Test 07/06/18 04:15 White Blood Count 6.3 x10^3/uL (4.0-11.0) Red Blood Count 5.15 x10^6/uL (4.30-5.70) Hemoglobin 16.1 g/dL (13.0-17.5) Hematocrit 47.1 % (39.0-53.0) Mean Corpuscular Volume 92 fL (79-100) Mean Corpuscular Hemoglobin 31 pg (25-35) Mean Corpuscular Hemoglobin Concent 34 g/dL (31-37) Red Cell Distribution Width 13.6 % (11.5-14.5) Platelet Count 200 x10^3/uL (140-400) Neutrophils (%) (Auto) 87 % (31-73) Lymphocytes (%) (Auto) 10 % (24-48) Monocytes (%) (Auto) 2 % (0-9) Eosinophils (%) (Auto) 0 % (0-3) Basophils (%) (Auto) 0 % (0-3) Neutrophils # (Auto) 5.5 x10^3uL (1.8-7.7) Lymphocytes # (Auto) 0.6 x10^3/uL (1.0-4.8) Monocytes # (Auto) 0.1 x10^3/uL (0.0-1.1) Eosinophils # (Auto) 0.0 x10^3/uL (0.0-0.7) Basophils # (Auto) 0.0 x10^3/uL (0.0-0.2) Segmented Neutrophils % 78 % (35-66) Band Neutrophils % 10 % (0-9) Lymphocytes % 9 % (24-48) Atypical Lymphocytes % (Manual) 1 % (0-0) Monocytes % 2 % (0-10) Platelet Estimate Adequate (ADEQUATE) Sodium Level 141 mmol/L (136-145) Potassium Level 4.4 mmol/L (3.5-5.1) Chloride Level 106 mmol/L (98-107) Carbon Dioxide Level 25 mmol/L (21-32) Anion Gap 10 (6-14) Blood Urea Nitrogen 5 mg/dL (8-26) Creatinine 0.9 mg/dL (0.7-1.3) Estimated GFR (Cockcroft-Gault) 99.8 Glucose Level 132 mg/dL (70-99) Calcium Level 9.1 mg/dL (8.5-10.1) Laboratory Tests Test 07/06/18 04:15 White Blood Count 6.3 x10^3/uL (4.0-11.0) Red Blood Count 5.15 x10^6/uL (4.30-5.70) Hemoglobin 16.1 g/dL (13.0-17.5) Hematocrit 47.1 % (39.0-53.0) Mean Corpuscular Volume 92 fL (79-100) Mean Corpuscular Hemoglobin 31 pg (25-35) Mean Corpuscular Hemoglobin Concent 34 g/dL (31-37) Red Cell Distribution Width 13.6 % (11.5-14.5) Platelet Count 200 x10^3/uL (140-400) Neutrophils (%) (Auto) 87 % (31-73) Lymphocytes (%) (Auto) 10 % (24-48) Monocytes (%) (Auto) 2 % (0-9) Eosinophils (%) (Auto) 0 % (0-3) Basophils (%) (Auto) 0 % (0-3) Neutrophils # (Auto) 5.5 x10^3uL (1.8-7.7) Lymphocytes # (Auto) 0.6 x10^3/uL (1.0-4.8) Monocytes # (Auto) 0.1 x10^3/uL (0.0-1.1) Eosinophils # (Auto) 0.0 x10^3/uL (0.0-0.7) Basophils # (Auto) 0.0 x10^3/uL (0.0-0.2) Segmented Neutrophils % 78 % (35-66) Band Neutrophils % 10 % (0-9) Lymphocytes % 9 % (24-48) Atypical Lymphocytes % (Manual) 1 % (0-0) Monocytes % 2 % (0-10) Platelet Estimate Adequate (ADEQUATE) Sodium Level 141 mmol/L (136-145) Potassium Level 4.4 mmol/L (3.5-5.1) Chloride Level 106 mmol/L (98-107) Carbon Dioxide Level 25 mmol/L (21-32) Anion Gap 10 (6-14) Blood Urea Nitrogen 5 mg/dL (8-26) Creatinine 0.9 mg/dL (0.7-1.3) Estimated GFR (Cockcroft-Gault) 99.8 Glucose Level 132 mg/dL (70-99) Calcium Level 9.1 mg/dL (8.5-10.1) Medications Current Medications Sodium Chloride 1,000 ml @ 100 mls/hr Q10H IV Last administered on 07/05/18at 15:57; Start 07/05/18 at 15:10; Stop 07/06/18 at 13:08; Status DC Ondansetron HCl (Zofran) 4 mg PRN Q6HRS PRN IV NAUSEA/VOMITING Last administered on 07/05/18at 15:48; Start 07/05/18 at 15:15; Stop 07/06/18 at 13 :08; Status DC Prochlorperazine Edisylate (Compazine) 10 mg PRN Q6HRS PRN IV NAUSEA/VOMITING; Start 07/05/18 at 15:15; Stop 07/06/18 at 13:08; Status DC Prochlorperazine (Compazine) 25 mg PRN Q12HR PRN DC NAUSEA/VOMITING; Start at 15:15; Stop 07/06/18 at 13:08; Status DC Al Hydroxide/Mg Hydroxide (Mylanta Plus Xs) 30 ml PRN Q3HRS PRN PO HEARTBURN / GAS; Start 07/05/18 at 15:15; Stop 07/06/18 at 13:08; Status DC Calcium Carbonate/ Glycine (Tums) 500 mg PRN Q3HRS PRN PO UPSET STOMACH; Start 07/05/18 at 15:15; Stop 07/06/18 at 13:08; Status DC Zolpidem Tartrate (Ambien) 5 mg PRN QHS PRN PO INSOMNIA, MAY REPEAT IN 1HR; Start 07/05/18 at 15:15; Stop 07/06/18 at 13:08; Status DC Oxycodone HCl (Roxicodone) 5 mg PRN Q3HRS PRN PO BREAKTHROUGH PAIN Last administered on 07/06/18at 08:46; Start 07/05/18 at 15:15; Stop 07/06/18 at 13 :08; Status DC Morphine Sulfate (Morphine Sulfate) 2 mg PRN Q2HR PRN IV PAIN Last administered on 07/05/18at 15:48; Start 07/05/18 at 15:15; Stop 07/05/18 at 17 :28; Status DC Acetaminophen (Tylenol) 650 mg PRN Q6HRS PRN PO Headaches, Temp > 101.5F; Start 07/05/18 at 15:15; Stop 07/06/18 at 13:08; Status DC Magnesium Hydroxide (Milk Of Magnesia) 2,400 mg PRN Q12HR PRN PO CONSTIPATION; Start 07/05/18 at 15:15; Stop 07/06/18 at 13:08; Status DC Bisacodyl (Dulcolax Supp) 10 mg PRN DAILY PRN DC CONSTIPATION; Start 07/05/18 at 15:15; Stop 07/06/18 at 13:08; Status DC Chlordiazepoxide (Librium) 25 mg PRN Q6HRS PRN PO ANXIETY / AGITATION; Start 07/05/18 at 15:45; Stop 07/06/18 at 13:08; Status DC Lorazepam (Ativan) 1 mg PRN Q4HRS PRN IV ANXIETY / AGITATION; Start 07/05/18 at 15:45; Stop 07/06/18 at 13:08; Status DC Multivitamins (Thera M Plus) 1 tab DAILY PO Last administered on 07/06/18at 08: 46; Start 07/05/18 at 16:00; Stop 07/06/18 at 13:08; Status DC Thiamine Mononitrate (Vitamin B-1) 100 mg DAILY PO Last administered on at 08:44; Start 07/05/18 at 16:00; Stop 07/06/18 at 13:08; Status DC Folic Acid (Folic Acid) 1 mg DAILY PO Last administered on 07/06/18at 08:45; Start 07/05/18 at 16:00; Stop 07/06/18 at 13:08; Status DC Albuterol Sulfate (Ventolin Neb Soln) 2.5 mg PRN QID PRN NEB Asthma; Start at 16:15; Stop 07/05/18 at 22:21; Status DC Cetirizine HCl (ZyrTEC) 10 mg DAILY PO Last administered on 07/06/18at 08:44; Start 07/05/18 at 16:30; Stop 07/06/18 at 13:08; Status DC Budesonide (Pulmicort) 0.5 mg RTBID NEB Last administered on 07/06/18at 10:12; Start 07/05/18 at 20:00; Stop 07/06/18 at 13:08; Status DC Zolpidem Tartrate (Ambien) 5 mg QHS PO Last administered on 07/05/18at 22:26; Start 07/05/18 at 21:00; Stop 07/06/18 at 13:08; Status DC Albuterol Sulfate (Ventolin Neb Soln) 2.5 mg RTQID NEB Last administered on at 10:12; Start 07/05/18 at 20:00; Stop 07/06/18 at 13:08; Status DC Influenza Virus Vaccine (Afluria Trivalent 8587-8301 Syringe) 0.5 ml ONCE ONCE VAX IM Last administered on 07/06/18at 12:10; Start 07/05/18 at 17:30; Stop 07/05/18 at 17:31; Status DC Morphine Sulfate (Morphine Sulfate) 4 mg PRN Q2HR PRN IV PAIN Last administered on 07/05/18at 18:19; Start 07/05/18 at 17:30; Stop 07/06/18 at 13 :08; Status DC Bupivacaine HCl/ Epinephrine Bitart (Sensorcain-Mpf Epi 0.5%-1:[id number]) 30 ml STK -MED ONCE .ROUTE Last administered on 07/05/18at 19:30; Start 07/05/18 at 17: 21; Stop 07/05/18 at 18:21; Status DC Fentanyl Citrate (Fentanyl 5ml Vial) 250 mcg STK-MED ONCE .ROUTE ; Start at 18:28; Stop 07/05/18 at 18:29; Status DC Succinylcholine Chloride (Anectine) 200 mg STK-MED ONCE .ROUTE ; Start at 18:29; Stop 07/05/18 at 18:30; Status DC Cefoxitin Sodium 2 gm/Dextrose 100 ml @ 200 mls/hr 1X PERIOP ONCE IV Last administered on 07/05/18at 19:03; Start 07/05/18 at 18:45; Stop 07/05/18 at 19 :14; Status DC Ondansetron HCl (Zofran) 4 mg STK-MED ONCE .ROUTE ; Start 07/05/18 at 18:29; Stop 07/05/18 at 18:30; Status DC Propofol 20 ml @ As Directed STK-MED ONCE IV ; Start 07/05/18 at 18:29; Stop 07/05/18 at 18:30; Status DC Lidocaine HCl (Lidocaine Pf 2% Vial) 5 ml STK-MED ONCE .ROUTE ; Start 07/05/18 at 18:29; Stop 07/05/18 at 18:30; Status DC Dexamethasone Sodium Phosphate (Decadron) 20 mg STK-MED ONCE .ROUTE ; Start at 18:29; Stop 07/05/18 at 18:30; Status DC Rocuronium Calvin (Zemuron) 50 mg STK-MED ONCE .ROUTE ; Start 07/05/18 at 18: 29; Stop 07/05/18 at 18:30; Status DC Ondansetron HCl (Zofran) 4 mg PRN Q6HRS PRN IV NAUSEA/VOMITING; Start at 18:45; Stop 07/06/18 at 13:08; Status DC Fentanyl Citrate (Fentanyl 2ml Vial) 25 mcg PRN Q5MIN PRN IV MILD PAIN Last administered on 07/05/18at 21:25; Start 07/05/18 at 18:45; Stop 07/06/18 at 13 :08; Status DC Fentanyl Citrate (Fentanyl 2ml Vial) 50 mcg PRN Q5MIN PRN IV MODERATE TO SEVERE PAIN Last administered on 07/05/18at 20:26; Start 07/05/18 at 18:45; Stop 07/06/18 at 13:08; Status DC Morphine Sulfate (Morphine Sulfate) 1 mg PRN Q10MIN PRN IV SEVERE PAIN; Start 07/05/18 at 18:45; Stop 07/06/18 at 13:08; Status DC Ringer's Solution 1,000 ml @ 30 mls/hr Q24H IV Last administered on at 20:27; Start 07/05/18 at 18:33; Stop 07/06/18 at 06:32; Status DC Lidocaine HCl (Xylocaine-Mpf 1% 2ml Vial) 2 ml PRN 1X PRN ID PRIOR TO IV START ; Start 07/05/18 at 18:45; Stop 07/06/18 at 13:08; Status DC Hydromorphone HCl (Dilaudid) 0.5 mg PRN Q10MIN PRN IV SEV PAIN, Second choice; Start 07/05/18 at 18:45; Stop 07/06/18 at 13:08; Status DC Prochlorperazine Edisylate (Compazine) 5 mg PACU PRN PRN IV NAUSEA, MRX1; Start 07/05/18 at 18:45; Stop 07/06/18 at 13:08; Status DC Cefoxitin Sodium 100 ml @ As Directed STK-MED ONCE IV ; Start 07/05/18 at 18: 56; Stop 07/05/18 at 18:57; Status DC Glycopyrrolate (Robinul) 1 mg STK-MED ONCE .ROUTE ; Start 07/05/18 at 19:59; Stop 07/05/18 at 20:00; Status DC Neostigmine Methylsulfate (Neostigmine Methylsulfate) 5 mg STK-MED ONCE .ROUTE ; Start 07/05/18 at 19:59; Stop 07/05/18 at 20:00; Status DC Sevoflurane (Ultane) 30 ml STK-MED ONCE IH ; Start 07/05/18 at 20:17; Stop at 20:18; Status DC Sevoflurane (Ultane) 60 ml STK-MED ONCE IH ; Start 07/05/18 at 20:17; Stop at 20:18; Status DC Ketorolac Tromethamine (Toradol 30mg Vial) 30 mg STK-MED ONCE .ROUTE ; Start at 20:31; Stop 07/05/18 at 20:32; Status DC Ketorolac Tromethamine (Toradol 30mg Vial) 30 mg PRN Q6HRS PRN IV PAIN Last administered on 07/06/18at 02:48; Start 07/05/18 at 20:45; Stop 07/06/18 at 13 :08; Status DC Albuterol Sulfate (Ventolin Neb Soln) 2.5 mg 1X ONCE NEB Last administered on 07/05/18at 20:50; Start 07/05/18 at 21:15; Stop 07/05/18 at 21:16; Status DC Sodium Chloride (Normal Saline Flush) 3 ml QSHIFT PRN IV AFTER MEDS AND BLOOD DRAWS; Start 07/05/18 at 21:30; Stop 07/06/18 at 13:08; Status DC Ringer's Solution 1,000 ml @ 100 mls/hr Q10H IV ; Start 07/05/18 at 21:21; Stop 07/06/18 at 13:08; Status DC Acetaminophen/ Hydrocodone Bitart (Lortab 5/325) 1 tab PRN Q4HRS PRN PO MILD PAIN Last administered on 07/06/18at 08:45; Start 07/05/18 at 21:30; Stop at 13:08; Status DC Ketorolac Tromethamine (Toradol 15mg Vial) 15 mg PRN Q6HRS PRN IV PAIN; Start 07/05/18 at 21:30; Stop 07/06/18 at 13:08; Status DC Docusate Sodium (Colace) 100 mg BID PO Last administered on 07/06/18at 08:45; Start 07/06/18 at 09:00; Stop 07/06/18 at 13:08; Status DC Ondansetron HCl (Zofran) 4 mg PRN Q6HRS PRN IV NAUESA, 1ST CHOICE; Start 07/05 at 21:30; Stop 07/06/18 at 13:08; Status DC Furosemide (Lasix) 20 mg 1X ONCE IVP ; Start 07/05/18 at 22:00; Stop at 22:01; Status DC Albuterol Sulfate (Ventolin Neb Soln) 2.5 mg PRN Q4HRS PRN NEB SHORTNESS OF BREATH; Start 07/05/18 at 22:30; Stop 07/06/18 at 13:08; Status DC Active Scripts Active Colace (Docusate Sodium) 100 Mg Capsule 100 Mg PO BID Hydrocodone-Apap 5-325 (Hydrocodone Bit/Acetaminophen) 1 Each Tablet 1 Tab PO PRN Q4HRS PRN Reported Ambien (Zolpidem Tartrate) 10 Mg Tablet 1 Tab PO QHS Ibuprofen 400 Mg Tablet 200 Mg PO PRN Q6HRS PRN Zyrtec (Cetirizine Hcl) 10 Mg Tablet 1 Tab PO DAILY Albuterol Sulfate Neb Soln (Albuterol Sulfate) 2.5 Mg/3 Ml Vial.neb 2.5 Mg NEB PRN QID PRN Advair 500-50 Diskus (Fluticasone/Salmeterol) 1 Each Disk.w.dev 1 Puff IH BID Vitals/I & O Vital Sign - Last 24 Hours 07/05/18 07/05/18 07/05/18 07/05/18 15:48 16:00 16:29 18:19 O2 Delivery Room Air Room Air Room Air Room Air 07/05/18 07/05/18 07/05/18 07/05/18 18:56 18:58 20:11 20:22 Temp 99.9 99.9 98.4 99.9 99.9 98.4 Pulse 81 81 78 Resp 16 16 15 B/P (MAP) 135/79 137/97 Pulse Ox 92 92 97 O2 Delivery Room Air Simple Mask Mask O2 Flow Rate 15 15 07/05/18 07/05/18 07/05/18 07/05/18 20:26 20:26 20:41 20:56 Pulse 72 64 74 Resp 20 14 16 16 B/P (MAP) 127/73 133/75 119/70 Pulse Ox 95 97 94 O2 Delivery Simple Mask Simple Mask Nasal Cannula Nasal Cannula O2 Flow Rate 10.0 15 2 2 07/05/18 07/05/18 07/05/18 07/05/18 21:05 21:11 21:25 21:30 Temp 97.5 97.5 Pulse 76 81 Resp 20 16 22 B/P (MAP) 133/75 129/75 (93) Pulse Ox 94 92 O2 Delivery Nasal Cannula Nasal Cannula Nasal Cannula Nasal Cannula O2 Flow Rate 2.0 5 5.0 5.0 07/05/18 07/05/18 07/05/18 07/05/18 21:35 21:45 22:30 23:00 Temp 97.5 97.5 Pulse 92 80 Resp 16 16 B/P (MAP) 136/81 (99) 124/79 (94) Pulse Ox 92 92 95 O2 Delivery Nasal Cannula Nasal Cannula Nasal Cannula Nasal Cannula O2 Flow Rate 4.0 4.0 5.0 5.0 07/05/18 07/05/18 07/05/18 07/06/18 23:15 23:26 23:33 00:00 Pulse 78 83 Resp 18 16 16 B/P (MAP) 139/82 (101) 126/71 (89) Pulse Ox 93 92 94 94 O2 Delivery Nasal Cannula Nasal Cannula Nasal Cannula Nasal Cannula O2 Flow Rate 4.0 4.0 5.0 4.0 07/06/18 07/06/18 07/06/18 07/06/18 00:30 01:01 02:00 03:00 Temp 97.9 97.9 Pulse 65 67 62 58 Resp 16 16 16 B/P (MAP) 110/57 (74) 105/52 (69) 115/75 (88) 122/68 (86) Pulse Ox 94 94 93 96 O2 Delivery Nasal Cannula Nasal Cannula Nasal Cannula Nasal Cannula O2 Flow Rate 4.0 2.0 2.0 5.0 07/06/18 07/06/18 07/06/18 07/06/18 04:43 06:00 07:00 08:45 Temp 98.1 98.1 Pulse 70 Resp 20 16 20 20 B/P (MAP) 122/70 (87) Pulse Ox 94 96 94 O2 Delivery Nasal Cannula Nasal Cannula Room Air Room Air O2 Flow Rate 2.0 1.0 07/06/18 07/06/18 07/06/18 08:46 10:12 11:00 Temp 98.0 98.0 Pulse 104 Resp 20 16 B/P (MAP) 136/83 (100) Pulse Ox 92 94 O2 Delivery Room Air Room Air Room Air Intake and Output 07/05/18 07/05/18 07/06/18 15:00 23:00 07:00 Intake Total 1950 ml 2550 ml Output Total 710 ml Balance 1240 ml 2550 ml UNRULY ARIAS III DO Jul 06, 2018 13:21
--- NOTE | 2018-07-09 18:06 | PATHOLOGY ---
[facility] Accession Number: [id number] . 01 Material submitted: . APPENDIX . 01 Clinician provided ICD-10: K35.80 . 01 Clinical history: . Acute appendicitis . 02 Diagnosis: Appendix, laparoscopic appendectomy: - Acute appendicitis. . 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 02 Comment: There is no evidence of rupture. . 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 02 Electronically signed: . Douglas De Los Santos MD, Pathologist NPI- [id number] . 01 Gross description: . The specimen is received in formalin, labeled "Tono Gore, appendix", is an appendix measuring 7.0 cm in length and up to 1.0 cm in diameter with attached yellow lobulated soft tissue measuring 2.5 x 1.0 x 0.6 cm. The serosa is a ellis-pink with no discrete perforations. The proximal resection margin is closed by a linear staple line measuring 2.0 cm in length and up to 0.2 cm in width. The staple line is removed and the adjacent serosa inked black. The lumen is partially filled with webber-brown hemorrhagic material and no discrete fecalith. The wall has an average 0.2 cm thickness. No discrete masses are identified. Mold Shifter tissue is submitted in A1. ([facility]; 07/08/2018) [facility]S . 02 Pathologist provided ICD-10: K35.80 . 02 CPT . 441499 Specimen Comment: A courtesy copy of this report has been sent to Specimen Comment: [phone], , . Specimen Comment: Report sent to , DR GILL / DR CLARKE Specimen Comment: A duplicate report has been generated due to demographic updates. Performed at: 01 [facility] [id number] [facility] [address], [place] [id number] MD Jim Adan MD Phone: [phone] Performed at: [address] [facility] [id number] MD Douglas De Los Santos MD Phone: [phone]
== END 2018-07-06 12:35 | disposition home or self-care (01) | DRG 343 ==
LOC: 4 NORTH 15:07
PROVIDERS: ADMIT Internal Medicine; ATTEND Internal Medicine
PROC: 0DTJ4ZZ Resection of Appendix, Percutaneous Endoscopic Approach (ICD-10-PCS; principal; 2018-07-05 18:45)
DX: K35.80 Unspecified acute appendicitis (principal); E66.9 Obesity, unspecified; J45.20 Mild intermittent asthma, uncomplicated; Z68.31 Body mass index [BMI] 31.0-31.9, adult; Z87.01 Personal history of pneumonia (recurrent)
CPT/HCPCS: 36415; 80048; 85007; 85025; 88304; 90471; 90756; 94640; 94760; A4615; J0330; J0694; J1100; J1885; J2001; J2270; J2405; J2704; J2710; J3010; J3490; J7030; J7120; J7613; J7626; Q2035

== ENCOUNTER 2020-06-06 15:25 | Emergency (ER) | payer OTHER ==
[~2020-06-06] VITALS: Ht 175.3 cm; Wt 100.0 kg
[~2020-06-06 15:25] MED LIST: ALBU2.5V5 NEB; CETI10TA74 PO; DOCU-109 PO; FLUT1DIS5 IH; HYDR-2761 PO; IBUP-1027 PO; ZOLP10TA PO
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
[2020-06-06 15:58] LABS: BASO # 0.1 x10^3/uL (0.0-0.2); BASO % 1 % (0-3); EOS # 0.1 x10^3/uL (0.0-0.7); EOS % 2 % (0-3); HEMATOCRIT 43.5 % (39.0-53.0); HEMOGLOBIN 15.1 g/dL (13.0-17.5); LYMPH # 1.6 x10^3/uL (1.0-4.8); LYMPH % 24 % (24-48); MEAN CORPUSCULAR HEMOGLOBIN 31 pg (25-35); MEAN CORPUSCULAR HGB CONC 35 g/dL (31-37); MEAN CORPUSCULAR VOLUME 90 fL (79-100); MONO # 0.5 x10^3/uL (0.0-1.1); MONO % 8 % (0-9); NEUT # 4.3 x10^3/uL (1.8-7.7); NEUT % 64 % (31-73); PLATELET COUNT 194 x10^3/uL (140-400); RED BLOOD COUNT 4.85 x10^6/uL (4.30-5.70); RED CELL DISTRIBUTION WIDTH 13.1 % (11.5-14.5); WHITE BLOOD COUNT 6.6 x10^3/uL (4.0-11.0)
[2020-06-06] MEDS ORDERED: IOHEXOL 300 MG/ML 100ML VIAL. IV ONE (16:00)
[2020-06-06] MEDS ORDERED: CONTRAST GIVEN. MC PRN (16:00)
[2020-06-06 16:09] LABS: CALCIUM 8.2 mg/dL (8.5-10.1); CREATININE 1.1 mg/dL (0.7-1.3); GFR 78.1; POTASSIUM 3.5 mmol/L (3.5-5.1)
[2020-06-06] MEDS ORDERED: IV NORMAL SALINE 1000ML BAG 1,000 ML IV ONE (16:15)
[2020-06-06] MEDS ORDERED: ONDANSETRON PF 4 MG/2 ML VIAL. IVP ONE (16:15)
[2020-06-06] MEDS ORDERED: MORPHINE SULFATE 4 MG/ML VIAL. IV ONE (16:15)
[2020-06-06] MEDS ORDERED: FAMOTIDINE 20 MG/2 ML VIAL IVP ONE (16:15)
[2020-06-06 16:16] LABS: ALBUMIN 2.9 g/dL (3.4-5.0); MAGNESIUM 1.7 mg/dL (1.8-2.4); TOTAL BILIRUBIN 0.5 mg/dL (0.2-1.0); TOTAL PROTEIN 5.9 g/dL (6.4-8.2)
[2020-06-06] MEDS ORDERED: MAGNESIUM OXIDE 400 MG TABLET PO ONE (16:45)
--- NOTE | 2020-06-06 17:11 | RAD ---
Exam: CT of abdomen and pelvis with contrast INDICATION: Epigastric pain TECHNIQUE: Sequential axial images through the abdomen and pelvis obtained following the administration of 75 mL of Omni 300 IV contrast. Sagittal and coronal reformatted images were reconstructed from the axial data and reviewed. Comparisons: 07/04/2019 FINDINGS: Heart size is normal. No pericardial effusion. Visualized lung bases are clear. No pleural effusion. Liver, spleen, pancreas, gallbladder and adrenals are unremarkable. No perinephric inflammation or hydronephrosis. No renal or ureteral calculi are identified. Bladder is decompressed not well evaluated. Prostate is not enlarged. Large bowel is unremarkable. There is a mildly dilated loop of small bowel in the upper midabdomen. Small bowel is otherwise unremarkable. No obstruction. No free abdominal air or fluid. Abdominal aorta has a normal course and caliber. Abdominal vasculature is patent. No enlarged abdominal lymph nodes are identified. No suspicious osseous lesions or acute fractures. IMPRESSION: Short segment of small bowel which demonstrates mild dilatation, may relate to enteritis. This may be infectious or inflammatory in etiology. Exposure: One or more of the following in the visualized dose reduction techniques were utilized for this examination: 1. Automated exposure control 2. Adjustment of the MA and/or KV according to patient size 3. Use of iterative of reconstructive technique Electronically signed by: Noy Puentes MD (06/06/2020 5:08 PM) [id number]
[2020-06-06 17:29] LABS: BILIRUBIN,URINE NEGATIVE (NEG); CLARITY,URINE CLEAR; COLOR,URINE YELLOW; NITRITE,URINE NEGATIVE (NEG); PH,URINE 5.5 (<5.0-8.0); PROTEIN,URINE NEGATIVE (NEG-TRACE); UROBILINOGEN,URINE 0.2 mg/dL (0.2 mg/dL)
[2020-06-06] MEDS ORDERED: ONDA4TAB7 PO (17:39)
[2020-06-06] MEDS ORDERED: AMOX1TAB61 PO (17:39)
[2020-06-06] MEDS ORDERED: DICY20TA3 PO (17:39)
[2020-06-06 18:00] LABS: BACTERIA,URINE 0 /HPF (0-FEW); RBC,URINE 0 /HPF (0-2); WBC,URINE 0 /HPF (0-4)
[2020-06-06] MEDS ORDERED: HYDROcodone/APAP 5/325MG 1 TAB TABLET PO ONE (18:00)
[2020-06-06] MEDS ORDERED: AMOXICILLIN/K CLAV 875/125MG TABLET. PO ONE (18:00)
[2020-06-06 18:06] VITALS: BP 158/79
== END 2020-06-06 18:10 | disposition home or self-care (01) ==
LOC: ER 15:25
DX: R10.13 Epigastric pain (principal); R11.2 Nausea with vomiting, unspecified
CPT/HCPCS: 36415; 74177; 80053; 81001; 83605; 83690; 83735; 85025; 85610; 96361; 96374; 96375; 99285; G0480; J2270; J2405; J3490; J7030; Q9967